=== PATIENT | male | born 2000 | race Two or more races ===

== ENCOUNTER 2023-02-26 17:45 | Emergency (ER) | payer SELFPAY ==
[~2023-02-26] VITALS: Ht 180.3 cm; Wt 81.5 kg
[2023-02-26 17:59] VITALS: BP 118/63; PULSE 105; RESP 16; TEMP 98; O2SAT 98
[2023-02-26] MEDS ORDERED: DexAMETHasone SOD PHOS 10MG/1ML VIAL INJ IM ONE (20:45)
[2023-02-26] MEDS ORDERED: HYDROcodone-ACET 5/325MG TAB PO ONE (20:45)
[2023-02-26] MEDS ORDERED: IBUP1TAB5 PO (20:47)
== END 2023-02-26 21:37 | disposition home or self-care (01) ==
LOC: ER 17:45
DX: G56.01 Carpal tunnel syndrome, right upper limb (principal); Z88.0 Allergy status to penicillin
CPT/HCPCS: 29125; 73110; 96372; 99283; J1100

== ENCOUNTER 2023-03-15 16:37 | Emergency (ER) | payer MEDICAID, OTHER ==
[~2023-03-15] VITALS: Ht 180.3 cm; Wt 78.7 kg
[~2023-03-15 16:37] MED LIST: IBUP1TAB5 PO
[2023-03-15 18:00] LABS: Basophils # (auto) 0.1 10 ^3/uL (0-0.2); Basophils % (auto) 0.4 % (0.0-2.0); Eosinophils # (auto) 0 10 ^3/uL (0-0.8); Eosinophils % (auto) 0.2 % (0.0-7.0); Hematocrit 48.5 % (41.0-53.0); Hemoglobin 16.7 g/dL (13.5-17.5); Lymphocytes # (auto) 2.4 10 ^3/uL (0.4-5.4); Lymphocytes % (auto) 16.8 % (10.0-50.0); Mean Corpuscular Hemoglobin 29.7 pg (28.0-32.0); Mean Corpuscular Hgb Conc. 34.4 g/dL (32.0-36.0); Mean Corpuscular Volume 86.3 fL (80.0-100.0); Monocytes # (auto) 0.7 10 ^3/uL (0-1.3); Monocytes % (auto) 4.7 % (0.0-12.0); Neutrophils # (auto) 11.2 10 ^3/uL (1.6-8.6); Neutrophils % (auto) 77.9 % (37.0-80.0); Nucleated Red Blood Cells % 0.1 %; Red Blood Cells 5.62 10^6/uL (4.5-5.90); Red Cell Distribution Width 12.8 % (11.8-14.3); White Blood Cell 14.4 10^3/uL (4.4-10.8)
[2023-03-15 18:15] LABS: INR 1.04 (0.9-1.15); Partial Thromboplastin Time 26.6 SEC (24.5-34.5); Prothrombin Time 10.9 sec (9.3-11.8)
[2023-03-15 18:18] LABS: Alanine Aminotransferase 21 U/L (7-40); Albumin 5.2 g/dL (3.2-4.8); Alkaline Phosphatase 74 U/L (46-116); Anion Gap 10 (5-15); Aspartate Aminotransferase 21 U/L (13-40); BUN/Creatinine Ratio 8.2 (10.0-20.0); Bilirubin, Total 0.8 mg/dL (0.2-1.0); Blood Urea Nitrogen 10 mg/dL (9-23); Calcium 10.7 mg/dL (8.5-10.1); Carbon Dioxide 27 mmol/L (20-30); Chloride 103 mmol/L (98-107); Glucose 99 mg/dL (74-106); Potassium 3.2 mmol/L (3.5-5.1); Sodium 140 mmol/L (136-145); Total Protein 8.3 g/dL (5.7-8.2)
[2023-03-15] MEDS ORDERED: AZITTAB PO (20:53)
[2023-03-15] MEDS ORDERED: METH4PAK PO (20:53)
[2023-03-15] MEDS ORDERED: PROM1SOL4 PO (20:53)
[2023-03-15 21:15] VITALS: BP 114/70; PULSE 78; RESP 18; TEMP 98.3; O2SAT 98
== END 2023-03-15 21:23 | disposition home or self-care (01) ==
LOC: ER 16:37
DX: J06.9 Acute upper respiratory infection, unspecified (principal); R06.02 Shortness of breath
CPT/HCPCS: 36415; 71045; 80053; 85025; 85610; 85730